=== PATIENT | female | born 1995 | race Caucasian/White ===

== ENCOUNTER 2018-06-01 11:08 | Inpatient (IN) | payer OTHER ==
[~2018-06-01] VITALS: Ht 165.1 cm; Wt 92.0 kg
[2018-06-01] MEDS ORDERED: D5%-LACTATED RINGERS 1,000 ML IV SCH (11:38)
[2018-06-01] MEDS ORDERED: OXYTOCIN 30U/ 0.9% NaCL 500ML 500 ML IV ONE (11:38)
[2018-06-01] MEDS ORDERED: MISOPROSTOL 25 MCG TABLET VG PRN (12:00)
[2018-06-01] MEDS ORDERED: ONDANSETRON 2MG/ML, 2ML IVPush PRN (12:00)
[2018-06-01] MEDS ORDERED: TERBUTALINE 1 MG/ML, 1ML IVPush PRN (12:00)
[2018-06-01] MEDS ORDERED: SODIUM CHLORIDE FLUSH 10ML SYR IVF PRN (12:00)
[2018-06-01] MEDS ORDERED: FENTANYL PF 100 MCG/2ML IV PRN (12:00)
[2018-06-01] MEDS ORDERED: FENTANYL PF 100 MCG/2ML IVPush PRN (12:00)
[2018-06-01 12:20] LABS: BASOPHILS # (AUTO) 0.02 x10^3/uL (0-0.1); BASOPHILS % (AUTO) 0 % (0-1); EOSINOPHILS # (AUTO) 0.03 x10^3/uL (0-0.4); EOSINOPHILS % (AUTO) 0 % (1-7); LYMPHOCYTES % (AUTO) 16 % (22-44); MD NO; MEAN CORPUSCULAR HGB CONC 34.3 g/dL (32.4-35.8); MEAN CORPUSCULAR VOLUME 87.5 fL (80-100); MEAN PLATELET VOLUME 9.7 fL (7.4-10.4); MONOCYTES # (AUTO) 0.94 x10^3/uL (0.2-0.8); MONOCYTES % (AUTO) 10 % (2-9); NEUTROPHILS # (AUTO) 7.07 x10^3/uL (1.8-6.8); NEUTROPHILS % (AUTO) 74 % (42-75); PLATELET COUNT 208 x10^3/uL (130-400); RED BLOOD COUNT 4.35 x10^6/uL (3.82-5.3); RED CELL DISTRIBUTION WIDTH 13.5 % (9.6-15.2)
[2018-06-01 12:24] LABS: ALANINE AMINOTRANSFERASE 14 U/L (12-78); ALBUMIN 2.7 g/dL (3.4-5.0); ANION GAP 7 mmol/L (5-15); CALCIUM 8.4 mg/dL (8.5-10.1); CHLORIDE 110 mmol/L (98-107); CREATININE 0.48 mg/dL (0.55-1.02)
[2018-06-01 12:26] LABS: ALKALINE PHOSPHATASE 118 U/L (45-117); BILIRUBIN,TOTAL 0.7 mg/dL (0.2-1.0); TOTAL PROTEIN 6.2 g/dL (6.4-8.2)
[2018-06-01 12:43] LABS: MICROSCOPIC INDICATED
[2018-06-01] MEDS ORDERED: NEWBORN KIT ONE (12:46)
[2018-06-01] MEDS ORDERED: LIDOCAINE/PF 1%, 30ML ONE (12:46)
[2018-06-01] MEDS ORDERED: MISOPROSTOL 200 MCG TABLET ONE (12:47)
[2018-06-01] MEDS ORDERED: MISOPROSTOL 25 MCG TABLET ONE (12:47)
[2018-06-01] MEDS ORDERED: OXYTOCIN 30U/ 0.9% NaCL 500ML 500 ML ONE ×2 (12:47→20:01)
[2018-06-01] MEDS: LACTATED RINGERS 1,000 ML IV SCH ×3 (12:52→23:14)
[2018-06-01] MEDS ORDERED: FENTANYL/BUPIV./NS/PF 250 ML EPIDCONT SCH ×2 (20:05→23:21)
[2018-06-01] MEDS ORDERED: OXYTOCIN 30U/ 0.9% NaCL 500ML 500 ML IV PRN (20:08)
[2018-06-01] MEDS ORDERED: FENTANYL PF 100 MCG/2ML ONE (21:53)
[2018-06-01] MEDS ORDERED: LACTATED RINGERS 1,000 ML IV SCH (23:21)
[2018-06-01] MEDS ORDERED: BUPIVACAINE 0.25% ONE (23:26)
[2018-06-01] MEDS ORDERED: LACTATED RINGERS 1,000 ML IVBOLUS PRN (23:30)
[2018-06-01] MEDS ORDERED: NALOXONE 0.4 MG/ML, 1ML IVPush PRN (23:30)
[2018-06-01] MEDS ORDERED: EPHEDRINE 50 MG/ML, 1ML IVPush PRN (23:30)
[2018-06-02] MEDS ORDERED: OXYcodone/APAP 5/325MG TABLET ONE (03:34)
[2018-06-02] MEDS ORDERED: IBUPROFEN 600 MG TABLET ONE (03:34)
[2018-06-02] MEDS: IBUPROFEN 600 MG TABLET PO PRN ×4 (03:44→23:44)
[2018-06-02] MEDS: OXYcodone/APAP 5/325MG TABLET PO PRN ×4 (03:44→23:44)
[2018-06-02] MEDS ORDERED: MISOPROSTOL 200 MCG TABLET PR PRN (04:00)
[2018-06-02] MEDS ORDERED: OXYcodone/APAP 5/325MG TABLET PO PRN (04:00)
[2018-06-02] MEDS ORDERED: ACETAMINOPHEN 325 MG TABLET PO PRN (04:00)
[2018-06-02] MEDS ORDERED: ONDANSETRON 2MG/ML, 2ML IV PRN (04:00)
[2018-06-02] MEDS ORDERED: CALCIUM CARBONATE 500 MG TAB.CHEW PO PRN (04:00)
[2018-06-02] MEDS: OXYTOCIN 30U/ 0.9% NaCL 500ML 500 ML IV SCH ×2 (04:34→13:37)
[2018-06-02 05:10] VITALS: BP 137/87
[2018-06-02] MEDS: LACTATED RINGERS 1,000 ML IV SCH ×2 (07:04→08:30)
[2018-06-02 07:10] VITALS: BP 130/84
[2018-06-02] MEDS: DOCUSATE 100 MG CAPSULE PO PRN ×2 (08:29→23:44)
[2018-06-02] MEDS: PRENATAL VIT/IRON/FA 1 EACH TABLET PO SCH (08:29)
[2018-06-02 10:50] LABS: BASOPHILS # (AUTO) 0.04 x10^3/uL (0-0.1); BASOPHILS % (AUTO) 0 % (0-1); EOSINOPHILS # (AUTO) 0.02 x10^3/uL (0-0.4); EOSINOPHILS % (AUTO) 0 % (1-7); LYMPHOCYTES # (AUTO) 1.31 x10^3/uL (1-3.4); LYMPHOCYTES % (AUTO) 10 % (22-44); MD NO; MEAN CORPUSCULAR HEMOGLOBIN 29.6 pg (27.0-34.8); MEAN CORPUSCULAR HGB CONC 33.7 g/dL (32.4-35.8); MEAN CORPUSCULAR VOLUME 87.7 fL (80-100); MEAN PLATELET VOLUME 9.5 fL (7.4-10.4); MONOCYTES # (AUTO) 0.99 x10^3/uL (0.2-0.8); MONOCYTES % (AUTO) 8 % (2-9); NEUTROPHILS # (AUTO) 10.62 x10^3/uL (1.8-6.8); NEUTROPHILS % (AUTO) 82 % (42-75); PLATELET COUNT 163 x10^3/uL (130-400); RED BLOOD COUNT 3.88 x10^6/uL (3.82-5.3); RED CELL DISTRIBUTION WIDTH 12.9 % (9.6-15.2)
[2018-06-02 12:10] VITALS: BP 130/85
[2018-06-02 16:15] VITALS: BP 125/84
[2018-06-02] MEDS ORDERED: DIPH,PERTUSS(ACELL),TET VAC/PF NC IM-VACC ONE (16:43)
[2018-06-02 19:45] VITALS: BP 117/78
[2018-06-02 23:50] VITALS: BP 131/90
[2018-06-03 04:00] VITALS: BP 133/90
[2018-06-03 07:35] VITALS: BP 137/92
[2018-06-03] MEDS: PRENATAL VIT/IRON/FA 1 EACH TABLET PO SCH (11:36)
[2018-06-03] MEDS: DOCUSATE 100 MG CAPSULE PO PRN (11:36)
[2018-06-03] MEDS ORDERED: IBUP-1222 PO (14:59)
== END 2018-06-03 16:05 | disposition home or self-care (01) | DRG 775 ==
LOC: LDOP 11:08 → LDIP 11:59 → 2NW 06-02 04:53
PROVIDERS: ADMIT Obstetrics & Gynecology; ATTEND Obstetrics & Gynecology
PROC: 3E0R3BZ Introduction of Anesthetic Agent into Spinal Canal, Percutaneous Approach (ICD-10-PCS; principal; 2018-06-02)
PROC: 10E0XZZ Delivery of Products of Conception, External Approach (ICD-10-PCS; 2018-06-02)
PROC: 0KQM0ZZ Repair Perineum Muscle, Open Approach (ICD-10-PCS; 2018-06-02)
PROC: 00HU33Z Insertion of Infusion Device into Spinal Canal, Percutaneous Approach (ICD-10-PCS; 2018-06-02)
PROC: 3E033VJ Introduction of Other Hormone into Peripheral Vein, Percutaneous Approach (ICD-10-PCS; 2018-06-02)
DX: O14.04 Mild to moderate pre-eclampsia, complicating childbirth (principal); O13.4 Gestational [pregnancy-induced] hypertension without significant proteinuria, complicating childbirth; O70.1 Second degree perineal laceration during delivery; Z81.8 Family history of other mental and behavioral disorders; Z37.0 Single live birth; Z3A.37 37 weeks gestation of pregnancy
CPT/HCPCS: 36415; 80053; 81001; 82570; 84156; 84550; 85025; 86850; 86900; J3010; J2590; J7120

== ENCOUNTER 2019-12-09 19:08 | Day surgery (SDC) | payer OTHER ==
[~2019-12-09] VITALS: Ht 167.6 cm; Wt 65.9 kg
[~2019-12-09 19:08] MED LIST: IBUP-1222 PO
[2019-12-09] MEDS: LACTATED RINGERS 1,000 ML IV SCH (19:29)
[2019-12-09] MEDS: D5%-LACTATED RINGERS 1,000 ML IV SCH (19:29)
[2019-12-09] MEDS ORDERED: OXYTOCIN 30U/ 0.9% NaCL 500ML 500 ML IV PRN (19:29)
[2019-12-09] MEDS ORDERED: OXYTOCIN 30U/ 0.9% NaCL 500ML 500 ML IV ONE (19:29)
[2019-12-09] MEDS ORDERED: FENTANYL PF 100 MCG/2ML IVPush PRN (19:30)
[2019-12-09] MEDS ORDERED: ONDANSETRON 2MG/ML, 2ML IVPush PRN (19:30)
[2019-12-09] MEDS ORDERED: CALCIUM CARBONATE 500 MG TAB.CHEW PO PRN (19:30)
[2019-12-09] MEDS ORDERED: RHOGAM FROM BLOOD BANK 1 NOTE EA IM/IV PRN (19:30)
[2019-12-09] MEDS ORDERED: MISOPROSTOL 200 MCG TABLET ONE ×2 (19:39→20:14)
[2019-12-09 19:44] VITALS: BP 133/86
[2019-12-09] MEDS ORDERED: OXYTOCIN 30U/ 0.9% NaCL 500ML 500 ML ONE ×2 (20:14→22:47)
[2019-12-09 20:20] LABS: BASOPHILS # (AUTO) 0.03 x10^3/uL (0-0.1); BASOPHILS % (AUTO) 0 % (0-1); EOSINOPHILS # (AUTO) 0.11 x10^3/uL (0-0.4); EOSINOPHILS % (AUTO) 1 % (1-7); LYMPHOCYTES # (AUTO) 2.19 x10^3/uL (1-3.4); LYMPHOCYTES % (AUTO) 19 % (22-44); MD NO; MEAN CORPUSCULAR HEMOGLOBIN 31.8 pg (27.0-34.8); MEAN CORPUSCULAR HGB CONC 34.7 g/dL (32.4-35.8); MEAN CORPUSCULAR VOLUME 91.8 fL (80-100); MEAN PLATELET VOLUME 9.1 fL (7.4-10.4); MONOCYTES # (AUTO) 0.57 x10^3/uL (0.2-0.8); MONOCYTES % (AUTO) 5 % (2-9); NEUTROPHILS % (AUTO) 74 % (42-75); PLATELET COUNT 212 x10^3/uL (130-400); RED BLOOD COUNT 4.46 x10^6/uL (3.82-5.3)
[2019-12-09] MEDS ORDERED: FLU VACC QS2019-20 36MOS UP/PF 0.5 ML IM-VACC ONE (20:30)
[2019-12-09] MEDS: MISOPROSTOL 200 MCG TABLET VG SCH (20:40)
[2019-12-09 21:12] LABS: AMPHETAMINE SCREEN, URINE Negative (Negative); BARBITURATE SCREEN, URINE Negative (Negative); BENZODIAZEPINE SCREEN, URINE Negative (Negative); CANNABINOID SCREEN, URINE Negative (Negative); COCAINE SCREEN, URINE Negative (Negative); METHADONE SCREEN, URINE Negative (Negative); OPIATE SCREEN, URINE Negative (Negative)
[2019-12-09] MEDS ORDERED: LIDOCAINE 1%, 20ML ONE (21:23)
[2019-12-10] MEDS ORDERED: MISOPROSTOL 200 MCG TABLET ONE (02:38)
[2019-12-10] MEDS: MISOPROSTOL 200 MCG TABLET VG SCH (02:47)
[2019-12-10 02:53] VITALS: BP 140/88
[2019-12-10] MEDS: LACTATED RINGERS 1,000 ML IV SCH (03:29)
[2019-12-10] MEDS: D5%-LACTATED RINGERS 1,000 ML IV SCH (03:29)
[2019-12-10] MEDS ORDERED: FENTANYL/BUPIV./NS/PF 250 ML EPIDCONT SCH (05:57)
[2019-12-10] MEDS ORDERED: FENTANYL PF 100 MCG/2ML ONE ×2 (07:02→08:22)
[2019-12-10] MEDS: FENTANYL PF 100 MCG/2ML IVPush PRN ×2 (07:04→08:20)
[2019-12-10] MEDS ORDERED: METOCLOPRAMIDE 5 MG/ML, 2ML ONE (08:35)
[2019-12-10] MEDS ORDERED: SODIUM CITRATE/CITRIC ACID 30 ML UDC ONE (08:35)
[2019-12-10] MEDS ORDERED: IBUPROFEN 600 MG TABLET PO PRN (09:00)
[2019-12-10] MEDS ORDERED: OXYcodone/APAP 5/325MG TABLET PO PRN (09:00)
[2019-12-10] MEDS ORDERED: ACETAMINOPHEN 325 MG TABLET PO PRN ×2 (09:00→10:00)
[2019-12-10] MEDS ORDERED: SODIUM CITRATE/CITRIC ACID 30 ML UDC PO PRN (09:00)
[2019-12-10] MEDS ORDERED: CEFAZOLIN 1,000 MG ONE (09:12)
[2019-12-10] MEDS ORDERED: EPINEPHRINE 1 MG/ML, 1ML ONE (09:12)
[2019-12-10] MEDS ORDERED: EPHEDRINE 50 MG/ML, 1ML ONE (09:12)
[2019-12-10] MEDS ORDERED: GLYCOPYRROLATE 0.2MG/1ML, 5ML ONE (09:13)
[2019-12-10] MEDS ORDERED: MIDAZOLAM 1 MG/ML, 2ML IV PRN (10:00)
[2019-12-10] MEDS ORDERED: ONDANSETRON ODT 8 MG PO PRN (10:00)
[2019-12-10] MEDS ORDERED: MORPHINE SULFATE 4 MG/ML, 1ML IVPush PRN (10:00)
[2019-12-10] MEDS ORDERED: HYDROcodone/APAP 7.5-325MG/15ML UDC PO PRN (10:00)
[2019-12-10] MEDS ORDERED: MEPERIDINE/PF 25MG/ML,1ML IVPush PRN (10:00)
[2019-12-10] MEDS ORDERED: ONDANSETRON 2MG/ML, 2ML IV PRN (10:00)
[2019-12-10] MEDS ORDERED: FENTANYL PF 100 MCG/2ML IV PRN (10:00)
[2019-12-10 14:19] LABS: BASOPHILS # (AUTO) 0.02 x10^3/uL (0-0.1); BASOPHILS % (AUTO) 0 % (0-1); EOSINOPHILS # (AUTO) 0.04 x10^3/uL (0-0.4); EOSINOPHILS % (AUTO) 1 % (1-7); LYMPHOCYTES # (AUTO) 1.27 x10^3/uL (1-3.4); LYMPHOCYTES % (AUTO) 14 % (22-44); MD NO; MEAN CORPUSCULAR HEMOGLOBIN 32.3 pg (27.0-34.8); MEAN CORPUSCULAR VOLUME 92.2 fL (80-100); MEAN PLATELET VOLUME 8.6 fL (7.4-10.4); MONOCYTES # (AUTO) 0.39 x10^3/uL (0.2-0.8); MONOCYTES % (AUTO) 4 % (2-9); NEUTROPHILS # (AUTO) 7.72 x10^3/uL (1.8-6.8); NEUTROPHILS % (AUTO) 82 % (42-75); PLATELET COUNT 188 x10^3/uL (130-400); RED BLOOD COUNT 3.49 x10^6/uL (3.82-5.3); RED CELL DISTRIBUTION WIDTH 12.8 % (9.6-15.2)
[2019-12-10 14:26] LABS: CREATININE 0.63 mg/dL (0.55-1.02); FREE T4 (FREE THYROXINE) 1.15 ng/dL (0.76-1.46)
[2019-12-10 16:03] LABS: INTERNATIONAL NORMALIZED RATIO 1.03 (0.93-1.1); PROTHROMBIN TIME 10.9 Seconds (9.6-11.5)
[2019-12-10] MEDS ORDERED: MISOPROSTOL 200 MCG TABLET PR ONE (18:00)
[2019-12-10] MEDS ORDERED: METOCLOPRAMIDE 5 MG/ML, 2ML IVPush ONE (18:00)
== END 2019-12-10 16:50 | disposition home or self-care (01) ==
LOC: OUT 19:08 → UNDOADMIN 19:08 → LDIP 19:08 → UNDODISIN 12-10 16:50 → OUT 12-10 16:50 → EDSTATUS 12-26 22:51
PROVIDERS: ATTEND Obstetrics & Gynecology
DX: O02.1 Missed abortion (principal); F32.9 Major depressive disorder, single episode, unspecified; I10 Essential (primary) hypertension; Z79.899 Other long term (current) drug therapy; Z87.891 Personal history of nicotine dependence; Z81.8 Family history of other mental and behavioral disorders
CPT/HCPCS: 36415; 59820; 80074; 80307; 82565; 83036; 84439; 84443; 85025; 85300; 85301; 85384; 85460; 85598; 85610; 85613; 85670; 85730; 86146; 86147; 86592; 86645; 86695; 86696; 86747; 86778; 86850; 86900; 88300; 88305; J0171; J0690; J2590; J2765; J3010; J7120; 85732; 86644; 86694; 86762; 86777; G0378